=== PATIENT | male | born 1960 | race Caucasian/White ===

== ENCOUNTER → 2017-11-17 | Outpatient (CLI) | payer OTHER ==
[~2017-11-17] MED LIST: ACETAMINOPHEN-1 EAC1 PO; ALLOPURINOL 30300 M1 PO; ASPIR 8181 MG PO; B/P MEDICATION; CHOLESTEROL MED; FISH OIL 1,001000 M2 PO; NABUMETONE 750750 M1 PO
== END ==
LOC: M.CT 07:49
DX: Z13.6 Encounter for screening for cardiovascular disorders (principal)

== ENCOUNTER 2018-07-26 19:21 | Emergency (ER) | payer OTHER ==
[~2018-07-26] VITALS: Ht 180.3 cm; Wt 99.8 kg
[~2018-07-26 19:21] MED LIST changes: -ACETAMINOPHEN-1 EAC1 PO; -NABUMETONE 750750 M1 PO
[2018-07-26] MEDS ORDERED: NABUMETONE 750750 M1 PO (20:44)
[2018-07-26] MEDS ORDERED: ACETAMINOPHEN-1 EAC1 PO (20:44)
[2018-07-26 21:18] VITALS: BP 165/77
== END 2018-07-26 21:05 | disposition home or self-care (01) ==
LOC: M.ERS 19:21
DX: S93.491A Sprain of other ligament of right ankle, initial encounter (principal); I10 Essential (primary) hypertension; E78.00 Pure hypercholesterolemia, unspecified; W10.8XXA Fall (on) (from) other stairs and steps, initial encounter; Y93.89 Activity, other specified; Y92.89 Other specified places as the place of occurrence of the external cause; Y99.8 Other external cause status

== ENCOUNTER → 2018-09-20 | Outpatient (CLI) | payer OTHER ==
[~2018-09-20] MED LIST changes: +ACETAMINOPHEN-1 EAC1 PO; +COZAAR 25 MG TA25 M1 PO; +IBUPROFEN 400400 M2 PO; +MOBIC15 MG PO; +NABUMETONE 750750 M1 PO; +NEURONTIN 300M300 M2 PO; +TYLENOL EXTRA500 MG PO
--- NOTE | ~2018-09-20 | PAINCON ---
[address] [address] PAIN MANAGEMENT CONSULTATION Name: SWETHA POOL Room: [facility] SHARONDA HayesChidi#: [id number] Admission: 09/20/18 Attend Phys: Mariola Fermin MD Discharge: Date of : 62 Report #: [id number] THIS REPORT FOR: //name// CC: Mariola Fajardo DATE OF SERVICE: 09/20/2018 CHIEF COMPLAINT: Pain in the back. FOLLOWUP HISTORY: The patient is a 58-year-old gentleman who has been referred to the pain clinic for evaluation. The patient states that he has had some problems with his back for a number of years. He is experiencing pain that radiates down into his rectal area. It radiates down into his feet. Has some numbness and tingling associated with this. In the past, he had an epidural steroid injection. This did decrease the amount of rectal discomfort that he experienced but it still is at a baseline level some discomfort. There is a burning component to it. He also has undergone physical therapy. Because of his weight, he thought that that might be problematic. He states he has lost about 25 pounds. Rates his pain as 3/10 at this juncture. Notes that pain is involved and curtails in mini activities. Continues to work on a regular basis. Has been under chiropractic therapy without long-term benefit. He has tried some opioid medications in the past, but does not want to continue to use those fpc. Has had to miss work because of the pain. Pain has worsened over the last few months and to this year. ALLERGIES: No known drug allergies. MEDICATIONS: Aspirin 81 mg, losartan/hydrochlorothiazide 50/12.5. Discontinued allopurinol. PAST MEDICAL HISTORY: Anxiety, chronic back pain, gout, hyperlipidemia, and hypertension. PAST SURGICAL HISTORY: Back surgery 2017, knee surgery, bilateral; neck surgery 2017 and again undersurface. Procedure at the [facility]. The patient had some surgery up in the right shoulder area. SOCIAL HISTORY: Continues to work at [employer]. 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 He is working at this juncture. REVIEW OF SYSTEMS: Generally good health, Awakens to urinate, joint pains, joint stiffness, weakness in muscle, joints, muscle pain and back pain, difficulty walking. PAIN CLINIC ASSESSMENT/PQRS: [place] [address] PAIN MANAGEMENT CONSULTATION Name: SWETHA POOL Room: [facility]#: [id number] Admission: 09/20/18 Attend Phys: Mariola Fermin MD Discharge: Date of : 62 Report #: [id number] 1. The patient is not being treated for rheumatoid arthritis. He has some arthritic type pain in his low back area. 2. Height 6 feet 2 inches, weight 256 pounds, BMI is 32. 3. Vital Signs: Blood pressure 138/84, heart rate 74, respiratory rate 16, room air saturation 96%, and temperature 99.2. 4. Pain intensity score 3/10. 5. Fall risk. The patient has not fallen in the last 3 months. 6. Blood thinning, the patient is not on a blood thinning medication. 7. Hypertension. The patient is not being treated for hypertension. 8. Opioids greater than 6 weeks. The patient is not on an opioid regimen. 9. Risk assessment tool, low for opioid use. 10. Functional assessment tool. 11. Recreational drug use. The patient denies use of recreational drugs. 12. Tobacco: The patient denies use of some tobacco. 13. Alcohol: The patient states that he drinks an alcoholic beverage prior to his meal and after the meal each night. He notes that helps to decrease the pain and discomfort, which he has been experiencing. PHYSICAL EXAMINATION: GENERAL: The patient is a well-developed, well-nourished white male. Appears his stated age. He is alert and oriented x 3. Affect is appropriate. Speech is fluent. HEENT: Normocephalic, atraumatic. Extraocular muscles intact. Sclerae nonicteric. Mucous membranes are moist. NECK: Without adenopathy or JVD. The patient has a well-healed scar about 1 inch in length over his right shoulder area on the area of the trapezius. Upper extremity muscle strength is judged to be 5/5 for the major muscle groups in the upper extremity. There is a slight difference in muscle sized in the deltoid on the right as opposed to the left. The left is greater. The patient states that this has improved since his surgery in the neck area. HEART: Regular rate. CHEST: Clear to auscultation. ABDOMEN: Nontender. Bowel sounds present. EXTREMITIES: Lower extremity muscle strength is judged to be 5/5 for the major muscle groups in the lower extremity. The patient has pain and discomfort which he describes in his legs that radiates down to the anterior portion of his leg in the dorsal portion of the L4-L5 dermatomal distribution bilaterally. Notes some burning sensation. Has some burning sensation in the rectal area as well. IMPRESSION: 1. Low back pain with pain that radiates down into his legs in the L5 dermatomal distribution of the dorsum of his feet. The patient has some burning sensation in the rectal area, which has decreased since the first epidural steroid injection, but still can be problematic. 2. Anxiety. 3. Chronic back pain. [address] [address] PAIN MANAGEMENT CONSULTATION Name: SWETHA POOL Room: [facility]DA RizzoLiu#: [id number] Admission: 09/20/18 Attend Phys: Mariola Fermin MD Discharge: Date of : 62 Report #: [id number] 4. Gout. 5. Hyperlipidemia. 6. Hypertension. RECOMMENDATIONS: We discussed treatment options with the patient. At this juncture, it appears that he has pain, which is burning in nature. Oftentimes that indicates nerve pain. We discussed the use of gabapentin/Neurontin. Oftentimes, it can be helpful with pain, which is a nerve origin. We will start the patient on gabapentin 300 mg and increase it as he is able to tolerate it. The patient will also try a nonsteroidal anti-inflammatory, Mobic. We will evaluate his progress. We explained that sometimes it takes 4-6 weeks before medications like gabapentin and start to show some result. We would like to thank you for letting us participate in his care. A script for Neurontin as well as gabapentin have been provided. By: [id number]. Ashwin Fermin MD /nt
== END ==
LOC: M.PC 10:57
DX: M54.5 Low back pain (principal); G89.29 Other chronic pain; M10.9 Gout, unspecified; I10 Essential (primary) hypertension; E78.5 Hyperlipidemia, unspecified; F41.9 Anxiety disorder, unspecified

== ENCOUNTER 2021-04-12 18:19 | Emergency (ER) | payer OTHER ==
[~2021-04-12] VITALS: Ht 188 cm; Wt 117.9 kg
[2021-04-12 21:08] LABS: ABSOLUTE LYMPHOCYTES 0.4 thou/uL (0.8-5.3); ABSOLUTE MONOCYTES 0.9 thou/uL (0.0-1.2); ABSOLUTE NEUTROPHILS 4.2 thou/uL (1.6-8.1); BASOPHILS 0.4 %; EOSINOPHILS 0.1 %; HEMATOCRIT 37.5 % (42.0-52.0); HEMOGLOBIN 13.1 gm/dL (14.0-18.0); MCH 29.1 pg (26.0-34.0); MCHC 34.8 g/dL (28.0-37.0); MCV 83.4 fL (80.0-100.0); MONOCYTES 16.7 %; MPV 7.8 fl. (7.2-11.1); NUCLEATED RBCS 0 /100WBC; PLATELET COUNT* 159 thou/uL (150-400); POLYS 74.8 %; RDW-CV 13.4 % (10.5-14.5); WBC 5.6 thou/uL (4.0-11.0)
[2021-04-12 21:19] LABS: CALCIUM 8.1 mg/dL (8.5-10.1); CREATININE 0.9 mg/dL (0.6-1.3); POTASSIUM 3.3 mmol/L (3.5-5.1)
[2021-04-12 21:23] LABS: ALBUMIN 4.1 g/dL (3.4-5.0); TOTAL BILIRUBIN 0.7 mg/dL (<0.1-1.0); TOTAL PROTEIN 6.8 g/dL (6.4-8.2)
[2021-04-12 22:51] VITALS: BP 132/64
--- NOTE | 2021-04-13 09:31 | EKG ---
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: : 1960 Requested By: Sheyla Moore Order Number: [id number] MD: Santana Sanon Measurements Intervals [place] Rate: 111 P: 11 TX: 169 QRS: -20 QRSD: 110 T: 34 QT: 326 QTc: 443 Interpretive Statements Sinus tachycardia Probable left atrial enlargement Borderline left axis deviation No previous ECG available for comparison Electronically Signed On 04-13-2021 9:31:19 CDT by Santana Sanon [email or web address] <ELECTRONICALLY SIGNED> By: Jose Sanon MD, [facility] 04/13/2131 13 13 Jose Sanon MD, [facility] /EPI
== END 2021-04-12 22:52 | disposition home or self-care (01) ==
LOC: M.ERS 18:19
PROVIDERS: Personal Emergency Response Attendant
DX: U07.1 COVID-19 (principal); E86.0 Dehydration; I10 Essential (primary) hypertension

== ENCOUNTER 2021-05-20 19:17 | Emergency (ER) | payer OTHER ==
[~2021-05-20] VITALS: Ht 188 cm; Wt 108.9 kg
[2021-05-20] MEDS ORDERED: LIPITOR10 MG PO (19:28)
[2021-05-20 20:31] LABS: ABSOLUTE LYMPHOCYTES 1.8 thou/uL (0.8-5.3); ABSOLUTE MONOCYTES 0.8 thou/uL (0.0-1.2); ABSOLUTE NEUTROPHILS 3.5 thou/uL (1.6-8.1); BASOPHILS 0.3 %; EOSINOPHILS 0.2 %; HEMATOCRIT 40.6 % (42.0-52.0); HEMOGLOBIN 14.5 gm/dL (14.0-18.0); LYMPHOCYTES 29.8 %; MCH 29.2 pg (26.0-34.0); MCHC 35.8 g/dL (28.0-37.0); MCV 81.6 fL (80.0-100.0); MONOCYTES 12.5 %; MPV 6.4 fl. (7.2-11.1); NUCLEATED RBCS 0 /100WBC; PLATELET COUNT* 361 thou/uL (150-400); POLYS 57.2 %; RBC 4.98 mil/uL (4.50-6.00); RDW-CV 14.1 % (10.5-14.5); WBC 6.1 thou/uL (4.0-11.0)
[2021-05-20 20:39] LABS: CALCIUM 8.4 mg/dL (8.5-10.1); CREATININE 0.9 mg/dL (0.6-1.3); POTASSIUM 3.6 mmol/L (3.5-5.1)
[2021-05-20 20:43] LABS: ALBUMIN 4.7 g/dL (3.4-5.0); MAGNESIUM 2.1 mg/dL (1.8-2.4); TOTAL PROTEIN 7.8 g/dL (6.4-8.2)
[2021-05-20] MEDS ORDERED: MEDROLDOSEPACK PO (23:43)
[2021-05-20] MEDS ORDERED: LOPRESSOR50 MG PO (23:43)
[2021-05-20] MEDS ORDERED: FLEXERIL PO (23:43)
[2021-05-20] MEDS ORDERED: TRAMADOL 50 MG50 MG PO (23:43)
[2021-05-20] MEDS ORDERED: PROTONIX40 MG PO (23:44)
[2021-05-21 00:06] VITALS: BP 143/85
--- NOTE | 2021-05-21 08:35 | EKG ---
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: [place] : 1960 Requested By: Shannon Shine Order Number: [id number] MD: Cristiano Sanders Measurements Intervals [place] Rate: 118 P: 25 TX: 162 QRS: -16 QRSD: 104 T: 51 QT: 317 QTc: 445 Interpretive Statements Sinus tachycardia Probable left atrial enlargement Borderline left axis deviation Baseline wander in lead(s) II,III,aVF Compared to ECG 04/12/2021 19:14:22 ST (T wave) deviation now present Electronically Signed On 05-21-2021 8:35:41 CDT by Cristiano Sanders [email or web address] <ELECTRONICALLY SIGNED> By: Cristiano Sanders MD, FAC 05/21/21 0835 19 19 Cristiano Sanders MD, FAC /EPI
== END 2021-05-21 00:07 | disposition home or self-care (01) ==
LOC: M.ERS 19:17
PROVIDERS: Emergency Medicine
DX: E87.1 Hypo-osmolality and hyponatremia (principal); F10.920 Alcohol use, unspecified with intoxication, uncomplicated; M54.9 Dorsalgia, unspecified; I10 Essential (primary) hypertension; E78.00 Pure hypercholesterolemia, unspecified; Z98.890 Other specified postprocedural states; Z79.899 Other long term (current) drug therapy